=== PATIENT | male | born 1965 | race Caucasian/White ===

== ENCOUNTER 2023-05-31 14:36 | Emergency (ER) | payer BC, SELFPAY ==
[2023-05-31 14:43] VITALS: BP 133/85
[2023-05-31 16:13] VITALS: BMI 32.8
[2023-05-31 16:19] LABS: % Basophils 0.2 % (0-2); % Eosinophils 0.2 % (0-6); % Immature Granulocytes 0.8 % (0-0.5); % Lymphocytes 9.6 % (20.5-51.1); % Monocytes 1.8 % (1.7-9.3); % Neutrophils 87.4 % (42.2-75.2); Absolute Immature Granulocytes 0.1 10^3/uL (0-0.05); Absolute Lymphocytes 1.2 10^3/uL (1.2-3.4); Absolute Monocytes 0.2 10^3/uL (0.1-0.6); Absolute Neutrophils 11.4 10^3/uL (1.4-6.5); Hematocrit 40.7 % (39.0-52.0); Mean Corp Hgb Conc. 34.4 g/dL (33.0-37.0); Mean Corpuscular Hgb 28.7 pg (27.0-31.0); Mean Corpuscular Volume 83.4 fL (80.0-94.0); Mean Platelet Volume 9.5 fL (7.4-10.4); Nucleated Red Blood Cells % 0 % (-); Platelet Count 402 10^3/uL (130-400); Red Blood Cell Count 4.88 10^6/uL (4.70-6.10); Red Cell Dist. Width 13.2 % (11.5-14.5)
[2023-05-31 16:36] LABS: ALT (SGPT) 30 U/L (0-50); AST (SGOT) 38 U/L (17-59); Albumin 5.3 g/dl (3.5-5.0); Alkaline Phosphatase 104 U/L (38-126); Blood Urea Nitrogen 23 mg/dl (9-20); Calcium 9.6 mg/dl (8.4-10.2); Carbon Dioxide 24 mmol/L (22-30); Chloride 102 mmol/L (98-107); Estimated Creatinine Clearance 77 ml/min; Glucose 132 mg/dl (70-99); Lipase 93 U/L (23-300); Potassium 4.6 mmol/L (3.5-5.1); Sodium 136 mmol/L (135-145); Total Bilirubin 0.5 mg/dl (0.2-1.3); Total Protein 8.8 g/dl (6.3-8.2); eGFR > 60.00
--- NOTE | 2023-05-31 17:15 | ED.GENMED ---
History of Present Illness
General
Chief Complaint: Abdominal Symptoms
Time Seen by Provider: 05/31/23 17:15
Travel History
Have you had any contact with someone who has COVID-19?: No
Do you have any symptoms of coronavirus? Fever > 100 degrees, chills, cough, shortness of breath, sore throat, loss of taste or smell, muscle aches, or headache?: No
History of Present Illness
History of Present Illness:
HPI: Patient presents with multiple rounds of vomiting described as about 20 times over the past 24 hours. He has had some constipation with only small amounts of bowel movements recently. He has not had diarrhea. He has had similar episodes in
the past. He feels dehydrated.
EXAM:
GENERAL: Appears somewhat uncomfortable
HEENT: Slightly dry oral mucosa
CARDIOVASCULAR: No murmurs, borderline tachycardic heart rate with regular rhythm, No chest wall tenderness
PULMONARY: No respiratory distress, breath sounds are clear and equal
ABDOMEN: Soft with no peritoneal signs, no tenderness
NEUROLOGIC: Excellent strength all extremities, no coordination deficits
PSYCHIATRIC: Appropriate mental status, normal insight and judgement
EXTREMITIES: Nontender, no edema, moves all extremities equally
SKIN: No rash, no lesions
ED COURSE:
5:30 PM: I initially evaluated patient
NUMBER AND COMPLEXITY OF PROBLEMS ADDRESSED AT THE ENCOUNTER
� Chronic conditions affecting care: Esophageal constriction, thyroid cancer, frequent unexplained bouts of vomiting
� Acute Exacerbation and/or Progression of Chronic Illness: This is a chronic problem for the patient
� Differential Diagnosis includes: Recurrent vomiting, gastroparesis, bowel obstruction, gastroenteritis
AMOUNT AND/OR COMPLEXITY OF DATA TO BE REVIEWED AND ANALYZED
� I performed an independent evaluation of and my interpretation is:
EKG:
CT:
X-rays:
Laboratory Studies: White count 13.0, LFTs and lipase unremarkable, renal function normal with exception of slightly elevated BUN
Other:
� Review of other/old records: The patient was kept in the hospital on 02/10 through 02/11/2023 and at that time there was some concern for possible SBO however was felt later to have gastroenteritis possibly viral versus
bacterial but did briefly have an NG tube that hospitalization
� Clinical information was obtained by an independent historian:
� Prescriptions/Medications Considered but not given:
� Further testing considered but not performed: I offered and considered CT imaging however the patient states he has had several CT imaging studies all of which were relatively unremarkable and does not want to have additional
CT imaging at this time. I informed him that I cannot give the patient any guarantees that he does not have any more serious and he verbalized understanding of this.
RISK OF COMPLICATIONS AND/OR MORBIDITY OR MORTALITY OF PATIENT MANAGEMENT
� Social determinants of health affecting care: Lives at home
� Discussion with other providers:
� Escalation of care including admission/observation vs risk of discharge considered: The patient was given IV fluids, Pepcid, Zofran, and will try IM Bentyl. He declined CT. urinalysis shows no ketones and creatinine is still
within normal range. He was given a couple liters of fluid. On reassessment at 7:20 PM, the patient overall feels improved. He was given 2 L of fluid. He states he does not use marijuana vape regularly but only occasionally. We did talk about
the possible of cannabinoid hyperemesis syndrome. He states he has seen GI doctors in the past and they have done extensive workup.
Past History
Past History
ED Past Medical History: Cancer (Thyroid cancer), Hypothyroidism and Other (Migraine headaches)
ED Past Surgical History: Orthopedic (Left shoulder replacement) and Other (Esophageal dilatation, thyroidectomy)
Patient has exhibited threatening behavior?: No
Social History
Tobacco: Non-smoker
Alcohol: None
Drug: None
Personal: Single
Living: with family
Employment: Not employed
Family History
Family History: Other
Phy Exam
Physical Exam
Physical Exam:
See HPI
Course
Orders/Labs/Results
Orders:
Orders
05/31/23 16:03
IV Insert/Care/Rem.- Treatment PRN
05/31/23 16:09
Complete Blood Count/With Diff Urgent
Comprehensive Metabolic Panel Urgent
Lipase Urgent
05/31/23 17:29
0.9% Sodium Chloride 1000 ml [Nss] 1,000 ml IV BOLUS
Dicyclomine HCl [Bentyl] 20 mg IM NOW STA
Famotidine [Pepcid] 20 mg IV NOW STA
05/31/23 17:31
0.9% Sodium Chloride 1000 ml [Nss] 1,000 ml IV BOLUS
05/31/23 17:33
Ondansetron Injectable [Zofran] 4 mg IV NOW STA
05/31/23 17:42
Urinalysis Reflex To Culture Urgent
Date Specimen was Collected: 05/31/23
Time Specimen was Collected: 16:03
Urine Microscopic Reflex Cult Urgent
Urine Culture Urgent
SETH Source: U
Specimen Description:
Date Specimen was Collected: 05/31/23
Time Specimen was Collected: 16:03
Abnormal Lab Results
05/31/23 05/31/23
16:09 17:42
WBC 13.0 H 10^3/uL
(4.8-10.8)
Plt Count 402 H 10^3/uL
(130-400)
Abs Immat Gran (auto) 0.1 H 10^3/uL
(0-0.05)
Absolute Neuts (auto) 11.4 H 10^3/uL
(1.4-6.5)
Immature Gran % 0.8 H %
(0-0.5)
Neutrophils % 87.4 H %
(42.2-75.2)
Lymphocytes % 9.6 L %
(20.5-51.1)
BUN 23 H mg/dl
(9-20)
Glucose 132 H mg/dl
(70-99)
Total Protein 8.8 H g/dl
(6.3-8.2)
Albumin 5.3 H g/dl
(3.5-5.0)
Urine Bilirubin 1+ A
(Negative)
Leukocyte Esterase Rfl Trace A
(Negative)
Urine Bacteria (Reflex) Moderate A
(Negative)
05/31/23 16:09
05/31/23 16:09
Vital Signs
Initial and Last Documented VS:
Initial Vital Signs
Temp Pulse Resp BP Pulse Ox
98.3 F 107 18 133/85 96
05/31/23 14:43 05/31/23 14:43 05/31/23 14:43 05/31/23 14:43 05/31/23 14:43
Last Documented Vital Signs
Temp Pulse Resp BP Pulse Ox
98.3 F 98 15 130/78 98
05/31/23 14:43 05/31/23 19:22 05/31/23 19:22 05/31/23 19:22 05/31/23 19:22
*Critical Care Note
Total Time (30-74mins, 75-104mins- exclusive of procedures): Not Applicable
ED Attending Note
-
Portions of this chart may have been created with voice recognition software.� Occasional wrong word or��sound alike� substitutions may have occurred due to the inherent limitations of voice recognition software.
Discharge Plan
Departure
Patient Disposition: Home (Routine Discharge)
Date of Disposition: 05/31/23
Time of Disposition: 19:20
Patient with high blood pressure during this ER visit?: Yes
Discharge Problem:
Vomiting
Instructions: Nausea and Vomiting, Adult (DC)
Prescriptions:
No Action
levothyroxine 175 MCG tablet
175 mcg PO DAILY
atorvastatin 10 MG tablet
10 mg PO DAILY
omeprazole 40 mg Capsule,Delayed Release(Dr/Ec)
40 mg PO DAILY
loperamide 2 mg Capsule
2 mg PO Q6HPRN PRN (Reason: DIARRHEA)
sumatriptan succinate 100 mg Tablet
100 mg PO DAILYPRN PRN (Reason: MIGRAINES)
dicyclomine 10 mg Capsule
10 mg PO QIDPRN PRN (Reason: ABDOMINAL PAIN)
amoxicillin-pot clavulanate 875-125 mg tablet
1 tab PO BID Qty: 10 0RF
ondansetron 4 MG tablet,disintegrating
4 mg PO TIDPRN PRN (Reason: nausea/vomiting) Qty: 20 0RF
Referrals:
Paxton Brown MD [Active] - Follow up in 2-3 days
Ken Snow DO [Family Provider] -
Activity Restrictions/Additional Instructions:
I have given you the contact information for the local GI doctors. Your white blood cell count is slightly high at 13 but has been higher in the past. We gave you Zofran along with Pepcid, 2 L of fluid, and a shot of Bentyl. Return here if worse.
Interventions
Interventions:
ED- Fall Risk Assessment Last Done: 05/31/23 16:13
*ED COVID-19 Vaccine History Last Done: 05/31/23 14:43
QZ-Xeomzl-Wbrfkokckr Assessment Last Done: 05/31/23 16:13
[2023-05-31] MEDS: PEPCID 20 MG IV (17:35)
[2023-05-31] MEDS: ZOFRAN 4 MG IV (17:35)
[2023-05-31] MEDS: NSS 1000 IV ×2 (17:35→17:36)
[2023-05-31] MEDS: BENTYL 20 MG IM (17:36)
[2023-05-31 17:59] LABS: Urine Albumin Trace (Neg - Trace); Urine Bilirubin 1+ (Negative); Urine Character Clear (Clear); Urine Color Yellow; Urine Glucose Negative (Negative); Urine Ketone Negative (Negative); Urine Leukocyte Trace (Negative); Urine Nitrite Negative (Negative); Urine Occult Blood Negative (Negative); Urine Urobilinogen Negative (Neg - 1+); Urine pH 6.5 (5.0-9.0)
[2023-05-31 18:04] LABS: Urine Bacteria Moderate (Negative); Urine Mucus Moderate; Urine Red Blood Cell 0-2 /HPF (0-2); Urine White Cell 0-2 /HPF (0-5)
[2023-05-31 19:22] VITALS: BP 130/78
== END 2023-05-31 19:32 | disposition home or self-care (01) ==
LOC: EMR 14:36
PROVIDERS: EMERGENCY PHYSICIAN Emergency Medicine; FAMILY PHYSICIAN Internal Medicine
DX: R11.10 Vomiting, unspecified (principal)
CPT/HCPCS: 99284; 96374; 96375; 96372; 96361; 80053; 81003; 81015; 83690; 85025; 87086

== ENCOUNTER 2023-06-12 18:39 | Emergency (ER) | payer BC, SELFPAY ==
[2023-06-12 18:41] VITALS: BP 142/77
[2023-06-12] MEDS: NSS 1000 IV ×2 (19:16→21:31)
[2023-06-12] MEDS: PEPCID 20 MG IV (19:16)
[2023-06-12] MEDS: ZOFRAN 4 MG IV ×2 (19:16→22:25)
[2023-06-12] MEDS: BENTYL 20 MG IM (19:18)
[2023-06-12 19:24] LABS: % Basophils 0.2 % (0-2); % Eosinophils 0.2 % (0-6); % Immature Granulocytes 0.5 % (0-0.5); % Lymphocytes 8.3 % (20.5-51.1); % Monocytes 0.7 % (1.7-9.3); % Neutrophils 90.1 % (42.2-75.2); Absolute Immature Granulocytes 0.1 10^3/uL (0-0.05); Absolute Lymphocytes 1.4 10^3/uL (1.2-3.4); Absolute Monocytes 0.1 10^3/uL (0.1-0.6); Absolute Neutrophils 14.9 10^3/uL (1.4-6.5); Hematocrit 40.2 % (39.0-52.0); Hemoglobin 13.5 g/dL (13.0-18.0); Mean Corp Hgb Conc. 33.6 g/dL (33.0-37.0); Mean Corpuscular Hgb 28.5 pg (27.0-31.0); Mean Platelet Volume 9.3 fL (7.4-10.4); Nucleated Red Blood Cells % 0 % (-); Platelet Count 316 10^3/uL (130-400); Red Blood Cell Count 4.73 10^6/uL (4.70-6.10); Red Cell Dist. Width 13.3 % (11.5-14.5); White Blood Cell Count 16.6 10^3/uL (4.8-10.8)
[2023-06-12 19:36] LABS: ALT (SGPT) 34 U/L (0-50); AST (SGOT) 33 U/L (17-59); Albumin 5.1 g/dl (3.5-5.0); Alkaline Phosphatase 79 U/L (38-126); Blood Urea Nitrogen 18 mg/dl (9-20); Calcium 9.4 mg/dl (8.4-10.2); Carbon Dioxide 22 mmol/L (22-30); Chloride 103 mmol/L (98-107); Glucose 104 mg/dl (70-99); Lipase 119 U/L (23-300); Potassium 4.4 mmol/L (3.5-5.1); Sodium 136 mmol/L (135-145); Total Bilirubin 0.9 mg/dl (0.2-1.3); Total Protein 8.4 g/dl (6.3-8.2); eGFR > 60.00
--- NOTE | 2023-06-12 20:25 | ED.GENMED ---
History of Present Illness
General
Chief Complaint: Abdominal Symptoms
Source: patient
Exam Limitations: none
Time Seen by Provider: 06/12/23 18:54
Travel History
Have you had any contact with someone who has COVID-19?: No
Do you have any symptoms of coronavirus? Fever > 100 degrees, chills, cough, shortness of breath, sore throat, loss of taste or smell, muscle aches, or headache?: No
History of Present Illness
History of Present Illness:
58-year-old male presents with the onset of nausea vomiting abdominal pain with diarrhea earlier today. He states he has regular episodes of this. He was here 2 weeks ago for the same. He tried Zofran and Bentyl at home without relief. He denies
fever. No known sick contacts. He has been evaluated multiple times here was admitted in January for similar symptoms and has seen GI. He denies to me any alcohol or marijuana use. No blood in the stool or the vomit.
Past History
Past History
ED Past Medical History: Cancer (Thyroid cancer), Hypothyroidism and Other (Migraine headaches)
ED Past Surgical History: Orthopedic (Left shoulder replacement) and Other (Esophageal dilatation, thyroidectomy)
Patient has exhibited threatening behavior?: No
Social History
Tobacco: Non-smoker
Alcohol: None
Drug: None
Personal: Single
Living: with family
Employment: Not employed
Family History
Family History: Other
Phy Exam
Physical Exam
Physical Exam:
General: Slightly ill-appearing male no acute respiratory distress
HEENT: Normocephalic atraumatic
Heart: Regular rate and rhythm no murmurs
Lungs: Clear to auscultation bilaterally no wheezing
Abdomen: Soft mildly diffusely tender no guarding or rebound normal bowel sounds nondistended extremities: No cyanosis
Skin: Warm no rash
Course
Orders/Labs/Results
Orders:
Orders
06/12/23 19:05
0.9% Sodium Chloride 1000 ml [Nss] 1,000 ml IV BOLUS
Dicyclomine HCl [Bentyl] 20 mg IM NOW STA
Famotidine [Pepcid] 20 mg IV NOW STA
Ondansetron Injectable [Zofran] 4 mg IV NOW STA
06/12/23 19:15
Complete Blood Count/With Diff Urgent
Comprehensive Metabolic Panel Urgent
Lipase Urgent
06/12/23 19:54
STOOL [C difficile Antigen & Toxins] Urgent
SETH Source: Feces/Stool
Specimen Description:
Date Specimen was Collected: 06/12/23
Time Specimen was Collected: 19:22
Stool Culture Urgent
SETH Source: Feces/Stool
Specimen Description:
Date Specimen was Collected: 06/12/23
Time Specimen was Collected: 19:22
06/12/23 21:17
0.9% Sodium Chloride 1000 ml [Nss] 1,000 ml IV BOLUS
06/12/23 22:21
Ondansetron Injectable [Zofran] 4 mg IV NOW STA
Abnormal Lab Results
06/12/23
19:15
WBC 16.6 H 10^3/uL
(4.8-10.8)
Abs Immat Gran (auto) 0.1 H 10^3/uL
(0-0.05)
Absolute Neuts (auto) 14.9 H 10^3/uL
(1.4-6.5)
Neutrophils % 90.1 H %
(42.2-75.2)
Lymphocytes % 8.3 L %
(20.5-51.1)
Monocytes % 0.7 L %
(1.7-9.3)
Glucose 104 H mg/dl
(70-99)
Total Protein 8.4 H g/dl
(6.3-8.2)
Albumin 5.1 H g/dl
(3.5-5.0)
06/12/23 19:15
06/12/23 19:15
Vital Signs
Initial and Last Documented VS:
Initial Vital Signs
Temp Pulse Resp BP Pulse Ox
98.0 F 115 20 142/77 98
06/12/23 18:41 06/12/23 18:41 06/12/23 18:41 06/12/23 18:41 06/12/23 18:41
Last Documented Vital Signs
Temp Pulse Resp BP Pulse Ox
98.0 F 102 18 112/65 95
06/12/23 18:41 06/12/23 21:32 06/12/23 21:32 06/12/23 21:32 06/12/23 21:32
MDM/Problems Addressed
Differential Diagnosis Includes:
Recurrent abdominal pain nausea vomiting and diarrhea. He has been worked up for this in the past. Currently too symptomatic to drink. Will try hydrating Bentyl give Zofran as well. No localizing tenderness on exam at this point no indication
for imaging of his abdomen
*Critical Care Note
Total Time (30-74mins, 75-104mins- exclusive of procedures): Not Applicable
Update Note
Update Note:
Patient reevaluated multiple times. Feeling slightly improved after fluids and medication. Now drinking herbert sadiq. Stool cultures are pending. Patient states he is willing to go home. He plans on following up with GI for his recurrent
abdominal pain and vomiting and diarrhea. Things is reasonable. White blood cell count is 16 however he is elevated regularly.
ED Attending Note
-
Portions of this chart may have been created with voice recognition software.� Occasional wrong word or��sound alike� substitutions may have occurred due to the inherent limitations of voice recognition software.
Discharge Plan
Departure
Patient Disposition: Home (Routine Discharge)
Date of Disposition: 06/12/23
Time of Disposition: 22:24
Patient with high blood pressure during this ER visit?: No
Discharge Problem:
Gastroenteritis
Instructions: Nausea and Vomiting, Adult (DC)
Prescriptions:
No Action
levothyroxine 175 MCG tablet
175 mcg PO DAILY
atorvastatin 10 MG tablet
10 mg PO DAILY
omeprazole 40 mg Capsule,Delayed Release(Dr/Ec)
40 mg PO DAILY
loperamide 2 mg Capsule
2 mg PO Q6HPRN PRN (Reason: DIARRHEA)
sumatriptan succinate 100 mg Tablet
100 mg PO DAILYPRN PRN (Reason: MIGRAINES)
dicyclomine 10 mg Capsule
10 mg PO QIDPRN PRN (Reason: ABDOMINAL PAIN)
amoxicillin-pot clavulanate 875-125 mg tablet
1 tab PO BID Qty: 10 0RF
ondansetron 4 MG tablet,disintegrating
4 mg PO TIDPRN PRN (Reason: nausea/vomiting) Qty: 20 0RF
Referrals:
Ken Snow, DO [Family Provider] -
Activity Restrictions/Additional Instructions:
Drink plenty clear liquids. Continue with Zofran. Please follow-up with GI for further evaluation
Interventions
Interventions:
*Risk Screen - Suicide Last Done: 06/12/23 18:41
*General Assessment Last Done: 06/12/23 18:41
DV-Zxycta-Levqqmtkfu Assessment Last Done: 06/12/23 19:35
[2023-06-12 21:32] VITALS: BP 112/65
[2023-06-12 22:26] VITALS: BP 103/75
== END 2023-06-12 22:32 | disposition home or self-care (01) ==
LOC: EMR 18:39
PROVIDERS: Physician Assistant; EMERGENCY PHYSICIAN Emergency Medicine; FAMILY PHYSICIAN Internal Medicine
DX: K52.9 Noninfective gastroenteritis and colitis, unspecified (principal)
CPT/HCPCS: 99284; 96374; 96375; 96361 ×2; 96372; 96376; 80053; 83690; 85025; 87045; 87046; 87077; 87324; 87427; 87449

== ENCOUNTER 2023-07-21 09:33 | Emergency (ER) | payer BC, SELFPAY ==
[2023-07-21 09:35] VITALS: BP 144/92
[2023-07-21 10:04] VITALS: BMI 35.5
[2023-07-21 10:12] VITALS: BP 142/82
--- NOTE | 2023-07-21 10:13 | ED.GENMED ---
History of Present Illness
General
Chief Complaint: Abdominal Symptoms
Source: patient
Exam Limitations: none
Time Seen by Provider: 07/21/23 10:01
Nursing documentation reviewed up to this point in time: agreed with
Travel History
Have you had any contact with someone who has COVID-19?: No
Do you have any symptoms of coronavirus? Fever > 100 degrees, chills, cough, shortness of breath, sore throat, loss of taste or smell, muscle aches, or headache?: No
History of Present Illness
History of Present Illness:
Patient is a 58-year-old male with chronic nausea and vomiting for 10 years worse over the past 2 years. He has been here several times in the ER and has been seen by GI has had colonoscopy endoscopy with no diagnosis. He is scheduled for
exploratory surgery in [address] Stinson. He does report that Dr. Stinson is planning on also doing appendectomy as patient has a history in his family of same symptoms that were attributed to their appendix and once appendix was removed
symptoms improved.
He started with vomiting at 7 AM this morning he has taken Zofran but is still vomited it which is why he presented to the ER.
Past History
Past History
ED Past Medical History: Cancer (Thyroid cancer), Hypothyroidism and Other (Migraine headaches)
ED Past Surgical History: Orthopedic (Left shoulder replacement) and Other (Esophageal dilatation, thyroidectomy)
Patient has exhibited threatening behavior?: No
Social History
Tobacco: Non-smoker
Alcohol: None
Drug: None
Personal: Single
Living: with family
Employment: Not employed
Family History
Family History: Other
Review of Systems
Review of Systems
Allergies reviewed?: Yes
All Other Systems: ROS reviewed and negative except as documented in HPI and ROS
Constitutional: Reports no symptoms; Denies fever, fatigue or chills
Respiratory: Reports no symptoms
Cardiac: Reports no symptoms
ABD/GI: Reports nausea and vomiting
Musculoskeletal: Reports no symptoms
Skin: Reports no symptoms
Neurological: Reports no symptoms
Endocrine: Reports no symptoms
Psychiatric: Reports no symptoms
Phy Exam
General Physical Exam
General Presentation: no apparent distress
General age: appears stated age
General Skin: warm and dry
General Habitus: normal
General Mental: alert
General Hydration: appears well hydrated
Gastrointestinal Exam
Gastrointestinal Exam: non tender and soft
Neurological Exam
Neurological Exam: alert and oriented x3
Musculoskeletal Exam
Musculoskeletal Exam: full ROM
Skin Exam
Skin Exam: normal color and warm/dry
Psychiatric Exam
Psychiatric Exam: normal mood/affect
Course
Orders/Labs/Results
Orders:
Orders
07/21/23 10:14
CMP [Comprehensive Metabolic Panel] Urgent
Complete Blood Count/With Diff Urgent
Lipase Urgent
Comment: abdominal pain.
07/21/23 10:28
Famotidine [Pepcid] 20 mg IV NOW STA
Ondansetron Injectable [Zofran] 4 mg IV NOW STA
07/21/23 10:29
0.9% Sodium Chloride 1000 ml [Nss] 1,000 ml IV BOLUS
07/21/23 12:00
0.9% Sodium Chloride 1000 ml [Nss] 1,000 ml IV BOLUS
Abnormal Lab Results
07/21/23
10:14
WBC 17.6 H 10^3/uL
(4.8-10.8)
RBC 4.28 L 10^6/uL
(4.70-6.10)
Hgb 12.4 L g/dL
(13.0-18.0)
Hct 36.0 L %
(39.0-52.0)
Abs Immat Gran (auto) 0.1 H 10^3/uL
(0-0.05)
Absolute Neuts (auto) 14.9 H 10^3/uL
(1.4-6.5)
Absolute Monos (auto) 0.8 H 10^3/uL
(0.1-0.6)
Immature Gran % 0.7 H %
(0-0.5)
Neutrophils % 84.9 H %
(42.2-75.2)
Lymphocytes % 9.0 L %
(20.5-51.1)
BUN 23 H mg/dl
(9-20)
Glucose 106 H mg/dl
(70-99)
07/21/23 10:14
07/21/23 10:14
Vital Signs
Initial and Last Documented VS:
Initial Vital Signs
Temp Pulse Resp BP Pulse Ox
98.8 F 104 16 144/92 96
07/21/23 09:35 07/21/23 09:35 07/21/23 09:35 07/21/23 09:35 07/21/23 09:35
Last Documented Vital Signs
Temp Pulse Resp BP Pulse Ox
98.8 F 104 16 132/74 98
07/21/23 09:35 07/21/23 09:35 07/21/23 09:35 07/21/23 12:00 07/21/23 13:45
MDM/Problems Addressed
MDM/Problems Addressed:
Patient has documented has chronic nausea vomiting for the past 2 years evaluated by family doctor and GI with no definitive diagnosis. Patient reported that his family has a history of similar symptoms of nausea and vomiting with elevated white
counts and once they had their appendix removed and their symptoms resolved. He was seen by Dr. Stinson of surgery and has an upcoming exploratory surgery coming up and they are planning on removing his appendix as well. Patient complains of
nausea and vomiting which is not relieved with the Zofran. Patient was hydrated here given Zofran feeling better patient has a chronically elevated white count and it is elevated here today however he is nontoxic this is baseline he wants to go
home. He has Zofran at home will DC with outpatient Surgery.
*Critical Care Note
Total Time (30-74mins, 75-104mins- exclusive of procedures): Not Applicable
ED Attending Note
-
Portions of this chart may have been created with voice recognition software.� Occasional wrong word or��sound alike� substitutions may have occurred due to the inherent limitations of voice recognition software.
Discharge Plan
Departure
Patient Disposition: Home (Routine Discharge)
Date of Disposition: 07/21/23
Time of Disposition: 14:07
Patient with high blood pressure during this ER visit?: Yes
Condition: Fair
Covid-19: Not Applicable
Discharge Problem:
Nausea & vomiting
Instructions: Nausea and Vomiting, Adult (DC)
Prescriptions:
No Action
levothyroxine 175 mcg Tablet
175 mcg PO DAILY
atorvastatin 20 mg Tablet
20 mg PO DAILY
omeprazole 40 mg Capsule,Delayed Release(Dr/Ec)
40 mg PO DAILY
naproxen sodium [Aleve] 220 mg Tablet
440 mg PO BID PRN (Reason: mild pain)
ondansetron 4 mg Tablet,Disintegrating
4 mg PO Q8H PRN (Reason: nausea/vomiting)
Referrals:
NONE,* [Active] -
Talon Stinson MD [Active] -
Activity Restrictions/Additional Instructions:
Follow-up with Dr. Stinson as scheduled. you may continue to use your Zofran as previously recommended and return if any worsening of symptoms.
Interventions
Interventions:
*Risk Screen - Suicide Last Done: 07/21/23 09:36
*General Assessment Last Done: 07/21/23 10:04
*Neglect/Abuse Screening Last Done: 07/21/23 09:36
ED- Fall Risk Assessment Last Done: 07/21/23 10:04
*ED COVID-19 Vaccine History Last Done: 07/21/23 10:04
*Nursing Disposition Last Done: 07/21/23 14:13
VM-Nwsciw-Pyxpcydrdn Assessment Last Done: 07/21/23 10:04
Discharge Date and Time
Discharge Date/Time: 07/21/23 14:13
Print Language: ZAMBIAN
[2023-07-21 10:26] LABS: % Basophils 0.3 % (0-2); % Eosinophils 0.6 % (0-6); % Immature Granulocytes 0.7 % (0-0.5); % Monocytes 4.5 % (1.7-9.3); % Neutrophils 84.9 % (42.2-75.2); Absolute Basophils 0.1 10^3/uL (0-0.2); Absolute Eosinophils 0.1 10^3/uL (0-0.7); Absolute Immature Granulocytes 0.1 10^3/uL (0-0.05); Absolute Lymphocytes 1.6 10^3/uL (1.2-3.4); Absolute Monocytes 0.8 10^3/uL (0.1-0.6); Absolute Neutrophils 14.9 10^3/uL (1.4-6.5); Hemoglobin 12.4 g/dL (13.0-18.0); Mean Corp Hgb Conc. 34.4 g/dL (33.0-37.0); Mean Corpuscular Volume 84.1 fL (80.0-94.0); Mean Platelet Volume 9.6 fL (7.4-10.4); Nucleated Red Blood Cells % 0 % (-); Platelet Count 317 10^3/uL (130-400); Red Blood Cell Count 4.28 10^6/uL (4.70-6.10); Red Cell Dist. Width 13.5 % (11.5-14.5); White Blood Cell Count 17.6 10^3/uL (4.8-10.8)
[2023-07-21] MEDS: NSS 1000 IV ×2 (10:34→12:01)
[2023-07-21] MEDS: PEPCID 20 MG IV (10:34)
[2023-07-21] MEDS: ZOFRAN 4 MG IV (10:34)
[2023-07-21 11:10] VITALS: BP 123/61
[2023-07-21 11:38] LABS: Blood Urea Nitrogen 23 mg/dl (9-20); Estimated Creatinine Clearance 120 ml/min; Glucose 106 mg/dl (70-99); eGFR > 60.00
[2023-07-21 11:39] LABS: ALT (SGPT) 30 U/L (0-50); AST (SGOT) 32 U/L (17-59); Albumin 4.7 g/dl (3.5-5.0); Alkaline Phosphatase 84 U/L (38-126); Calcium 9.3 mg/dl (8.4-10.2); Carbon Dioxide 24 mmol/L (22-30); Chloride 106 mmol/L (98-107); Lipase 95 U/L (23-300); Potassium 4.1 mmol/L (3.5-5.1); Sodium 137 mmol/L (135-145); Total Bilirubin 0.6 mg/dl (0.2-1.3); Total Protein 7.9 g/dl (6.3-8.2)
[2023-07-21 12:00] VITALS: BP 132/74
== END 2023-07-21 14:13 | disposition home or self-care (01) ==
LOC: EMR 09:33
PROVIDERS: Nurse Practitioner; EMERGENCY PHYSICIAN Emergency Medicine; FAMILY PHYSICIAN Internal Medicine
DX: R11.2 Nausea with vomiting, unspecified (principal); R03.0 Elevated blood-pressure reading, without diagnosis of hypertension
CPT/HCPCS: 99284; 96374; 96375; 96361; 80053; 83690; 85025

== ENCOUNTER 2023-08-13 06:15 | Day surgery (SDC) | payer BC, SELFPAY ==
[2023-07-28 13:28] VITALS: BMI 33.7
--- NOTE | 2023-08-06 12:01 | PTCARENOTE ---
WBC's 17.6 collected on 07/21/23; Daniela at 's office was notified.
[2023-08-13] VITALS (13 sets, daily range): BP systolic 103–144; BP diastolic 69–93; BMI 33.7
[2023-08-13] MEDS: TYLENOL 1000 MG PO (08:50)
[2023-08-13] MEDS: NORMOSOL-R 1000 IV (08:51)
--- NOTE | 2023-08-13 09:04 | HP.FOC2 ---
Focused History & Physical
Chief Complaint
HPI:
Chief Complaint: abd pain
HPI / Indication for Planned Procedure: 58 y/o male with a h/o chronic intermittent abdominal pain, N/V/D uncertain cause. Has had extensive GI evaluations essentially unremarkable for infectious or inflammatory causes. Fam hx notable for similar
symptoms and have been found to have chronic appendicitis. See office visit consult for full details regarding discussions, he presents today for dx lap, appendectomy and also removal of lipoma on his abd.
Relevant Past Medical History: Other (thyroid ca, high cholesterol)
Relevant Social History: Negative
Relevant Family History: Positive for (multiple members with chronic appendicitis)
Relevant Past Surgical History: Positive for (thyroidectomy, left shoulder replacement, right bicepts)
Review of Systems
Review of Pertinent Systems: All Systems Negative
Medication
See Medication form for detailed medications: Yes
Medication List (including Herbals & OTC):
atorvastatin 20 mg tablet 20 mg PO DAILY 07/21/23
levothyroxine 175 mcg tablet 175 mcg PO DAILY 07/21/23
omeprazole 40 mg capsule,delayed release 40 mg PO DAILY 07/21/23
lorazepam 1 mg tablet 1 mg PO PRN PRN anxiety 08/10/23
Medications Reviewed: Yes
Allergies and Reactions
Patient has Allergies: No
Noted Allergies and Reactions:
Allergy/AdvReac Type Severity Reaction Status Date / Time
No Known Allergies Allergy Verified 08/13/23 08:26
Pertinent Physical Exam
All Other Systems: Negative
Head/Neck: Normal
Lungs: Normal
Heart: Normal
Abdomen: Other (epigastric lipoma)
Extremities: Normal
Neurological: Normal
Diagnosis / Assessment
58 y/o male presenting for dx lap, appendectomy and removal of abd subcutaneous lipoma
Plan / Procedure
dx lap, appendectomy and removal of abd subcutaneous lipoma
Anesthesia/Sedation to be done by Anesthesia Provider: Yes
--- NOTE | 2023-08-13 09:23 | W.SUR.PREOP ---
Pre-Operative Surgical Note
-
I have examined this patient prior to the performance of the scheduled procedure.
The patient's condition is unchanged from the time of the current History and
Physical and the patient is able to undergo the scheduled procedure.
[2023-08-13] MEDS: TRANSDERM-SCOP 1 PATCH TRANSDERM (09:38)
--- NOTE | 2023-08-13 11:13 | W.IMMPOSTOP ---
Addendum entered and electronically signed by Talon Stinson MD 08/13/23 11:23:
#[id number]
Original Note:
Surgical Immed Post Op Note
-
Primary Surgeon: Milad
Assisting Surgeon: Stormy VILLANUEVA
Pre-op Diagnosis: Intermittent abdominal pain N/V/D; lipoma subcutaneous abdominal
Post-op Diagnosis: same
Procedure Performed: Dx Laparoscopy, LINDA, Appendecomy; excision subcutaneous lipoma 2cm
Anesthesia Type: GETA + 0.25% Marcaine
Specimen / Cultures: appendix, lipoma
Estimated Blood Loss: 6mL
Complications: none immediate
Operative Findings: 2 cm well encapsulated lipoma; some TI peritoneal adhesions cause some angulation of distal ilium - lysed; appendectomy completed.
[2023-08-13] MEDS: ZOFRAN 4 MG IV (12:02)
[2023-08-13] MEDS: DILAUDID 0.25 MG IV (12:09)
[2023-08-13] MEDS: COMPAZINE 5 MG IV (12:12)
== END 2023-08-13 15:15 | disposition home or self-care (01) ==
LOC: SDS 06:15
PROVIDERS: ATTENDING PHYSICIAN Surgery; FAMILY PHYSICIAN Internal Medicine
DX: D17.1 Benign lipomatous neoplasm of skin and subcutaneous tissue of trunk (principal); K66.0 Peritoneal adhesions (postprocedural) (postinfection); R10.9 Unspecified abdominal pain
CPT/HCPCS: 44970; 22900; 88304; 36415; 93005; J1335

== ENCOUNTER 2024-06-06 11:56 | Emergency (ER) | payer BC, SELFPAY ==
[2024-06-06 11:59] VITALS: BP 136/88
--- NOTE | 2024-06-06 13:04 | ED.GENMED ---
History of Present Illness
<DO Estefany Cruz Last Filed: 06/06/24 14:28>
General
Chief Complaint: Abdominal Symptoms
Time Seen by Provider: 06/06/24 12:06
History of Present Illness
History of Present Illness:
59-year-old male with history of intractable vomiting presenting for nausea and vomiting. Patient reports symptoms started this morning. Has had similar symptoms in the past of unclear etiology. Denies known triggers. Denies alcohol or drug
abuse. Last episode of vomiting was 20 minutes ago. Denies any associate abdominal pain. Denies diarrhea. Denies fever or recent illness or additional acute medical complaints
Past History
<DO Estefany Cruz Last Filed: 06/06/24 14:28>
Past History
ED Past Medical History: Cancer (Thyroid cancer), Hypothyroidism and Other (Migraine headaches)
ED Past Surgical History: Orthopedic (Left shoulder replacement) and Other (Esophageal dilatation, thyroidectomy)
Patient has exhibited threatening behavior?: No
Social History
Tobacco: Non-smoker
Alcohol: None
Drug: None
Personal: Single
Living: with family
Employment: Not employed
Family History
Family History: Other
Phy Exam
<DO Estefany Cruz Last Filed: 06/06/24 14:28>
Physical Exam
Physical Exam:
General: Well-appearing, no clinical signs of dehydration, nontoxic and in no acute distress
HEENT: protecting airway
Neck: appears supple
CV: Normal heart rate, regular rhythm
Resp: No accessory muscle use, no increased work of breathing, lungs clear to auscultation bilaterally
Abd: Soft and non-distended, no tenderness to palpation
Extremities: No deformities, no swelling
Neuro: alert, no focal neurologic deficit
: deferred
Rectal: deferred
Psych: Normal affect
Skin: Intact
Course
<Michelle Davala, DO - Last Filed: 06/06/24 14:28>
Orders/Labs/Results
Orders:
Orders
06/06/24 12:51
0.9% Sodium Chloride 1000 ml [Nss] 1,000 ml IV BOLUS
Ondansetron Injectable [Zofran] 4 mg IV NOW STA
06/06/24 13:09
Complete Blood Count/With Diff Urgent
Comprehensive Metabolic Panel Urgent
Lipase Urgent
06/06/24 14:19
0.9% Sodium Chloride 1000 ml [Nss] 1,000 ml IV BOLUS
06/06/24 15:10
Ondansetron Injectable [Zofran] 4 mg IV NOW STA
06/06/24 18:09
Diphenhydramine [Benadryl] 25 mg IV NOW STA
Metoclopramide [Reglan] 10 mg IV NOW STA
06/06/24 18:10
Electrocardiogram (*1) Urgent
Reason for Study: QTc Monitoring
EKG- Treatment ONCE
06/06/24 18:15
0.9% Sodium Chloride 1000 ml [Nss] 1,000 ml IV 125 mls/hr
Abnormal Lab Results
06/06/24
13:09
WBC 19.5 H 10^3/uL
(4.8-10.8)
Abs Immat Gran (auto) 0.1 H 10^3/uL
(0-0.05)
Absolute Neuts (auto) 16.8 H 10^3/uL
(1.4-6.5)
Absolute Monos (auto) 1.1 H 10^3/uL
(0.1-0.6)
Immature Gran % 0.6 H %
(0-0.5)
Neutrophils % 86.3 H %
(42.2-75.2)
Lymphocytes % 6.9 L %
(20.5-51.1)
BUN 22 H mg/dl
(9-20)
Glucose 111 H mg/dl
(70-99)
06/06/24 13:09
06/06/24 13:09
Vital Signs
Initial and Last Documented VS:
Initial Vital Signs
Temp Pulse Resp BP Pulse Ox
36.3 C 113 20 136/88 100
06/06/24 11:59 06/06/24 11:59 06/06/24 11:59 06/06/24 11:59 06/06/24 11:59
Last Documented Vital Signs
Temp Pulse Resp BP Pulse Ox
36.3 C 93 20 133/75 97
06/06/24 11:59 06/06/24 18:56 06/06/24 18:56 06/06/24 18:56 06/06/24 18:56
<David Vazquez MD - Last Filed: 06/06/24 19:29>
Orders/Labs/Results
Orders:
Orders
06/06/24 12:51
0.9% Sodium Chloride 1000 ml [Nss] 1,000 ml IV BOLUS
Ondansetron Injectable [Zofran] 4 mg IV NOW STA
06/06/24 13:09
Complete Blood Count/With Diff Urgent
Comprehensive Metabolic Panel Urgent
Lipase Urgent
06/06/24 14:19
0.9% Sodium Chloride 1000 ml [Nss] 1,000 ml IV BOLUS
06/06/24 15:10
Ondansetron Injectable [Zofran] 4 mg IV NOW STA
06/06/24 18:09
Diphenhydramine [Benadryl] 25 mg IV NOW STA
Metoclopramide [Reglan] 10 mg IV NOW STA
06/06/24 18:10
Electrocardiogram (*1) Urgent
Reason for Study: QTc Monitoring
EKG- Treatment ONCE
06/06/24 18:15
0.9% Sodium Chloride 1000 ml [Nss] 1,000 ml IV 125 mls/hr
Abnormal Lab Results
06/06/24
13:09
WBC 19.5 H 10^3/uL
(4.8-10.8)
Abs Immat Gran (auto) 0.1 H 10^3/uL
(0-0.05)
Absolute Neuts (auto) 16.8 H 10^3/uL
(1.4-6.5)
Absolute Monos (auto) 1.1 H 10^3/uL
(0.1-0.6)
Immature Gran % 0.6 H %
(0-0.5)
Neutrophils % 86.3 H %
(42.2-75.2)
Lymphocytes % 6.9 L %
(20.5-51.1)
BUN 22 H mg/dl
(9-20)
Glucose 111 H mg/dl
(70-99)
06/06/24 13:09
06/06/24 13:09
Vital Signs
Initial and Last Documented VS:
Initial Vital Signs
Temp Pulse Resp BP Pulse Ox
36.3 C 113 20 136/88 100
06/06/24 11:59 06/06/24 11:59 06/06/24 11:59 06/06/24 11:59 06/06/24 11:59
Last Documented Vital Signs
Temp Pulse Resp BP Pulse Ox
36.3 C 93 20 133/75 97
06/06/24 11:59 06/06/24 18:56 06/06/24 18:56 06/06/24 18:56 06/06/24 18:56
<Michelle Gonzales, DO - Last Filed: 06/06/24 14:28>
MDM/Problems Addressed
MDM/Problems Addressed:
59-year-old male with history of intractable vomiting presenting for nausea and vomiting. Vital signs are significant for mild tachycardia.
On exam patient is in no acute distress, no active emesis. Patient with previously negative workups. He is presently nontoxic, no tenderness to the abdomen without concern for serious intra-abdominal process or infection. Suspect possible
gastritis. Patient notes in the past has had improvement with IV fluids and Zofran. Will screen with laboratory analysis and treat with hydration and antiemetics
Labs do show leukocytosis, however suspected to be reactive. Patient reporting improvement after first bag of fluids and antiemetics. He is requesting another liter of fluids. Will administer. Ultimate plan for discharge with outpatient
follow-up and supportive therapy
<Michelle Gonzales DO - Last Filed: 06/06/24 14:28>
*Critical Care Note
Total Time (30-74mins, 75-104mins- exclusive of procedures): Not Applicable
<David Vazquez MD - Last Filed: 06/06/24 19:29>
Update Note
Update Note:
UPDATE (David Vazquez MD)
I have seen and evaluated the patient after signout and reviewed all labs and imaging.
Focused HPI: 59-year-old male with history as documented uses here to the emergency room for nausea and vomiting today. He says he has a long history of GI issues nausea and vomiting of unclear etiology. Says symptoms returned this morning and
have been constant all day. He does note that he recently started Wegovy and took a dose this morning. He does not have any abdominal pain. No fevers or chills. No other complaints.
Physical exam: Awake alert not in distress. Slightly dry mucous membranes. Vital signs as noted--mild tachycardia in triage resolved by my assessment. His abdomen is soft nondistended nontender to deep palpation.
Medical Decision Makin-year-old male with chronic nausea and vomiting presents for evaluation of nausea and vomiting today; he says typically improved with Zofran and fluids. He has notably been on Wegovy recently. He had labs sent including
a CBC and a CMP�she had a leukocytosis likely demargination but no other acute abnormalities. His lipase was normal. He had 2 doses of Zofran and 2 L of fluid but he says he still has significant nausea. Will trial Reglan. Will continue fluids.
EKG for QTc monitoring. Reassess after the above.
Patient feeling much better after additional treatment as above. Requesting discharge�will discharge in keeping with his wishes. Follow-up with PCP. All questions answered.
ED Attending Note
<Michelle Gonzales, DO - Last Filed: 06/06/24 14:28>
-
Portions of this chart may have been created with voice recognition software.� Occasional wrong word or��sound alike� substitutions may have occurred due to the inherent limitations of voice recognition software.
Discharge Plan
Departure
Patient Disposition: Home (Routine Discharge)
Date of Disposition: 06/06/24
Time of Disposition: 19:29
Patient with high blood pressure during this ER visit?: No
Condition: Good
Discharge Problem:
Nausea and vomiting
Instructions: Stuart Diet, Nausea and Vomiting, Adult (DC)
Prescriptions:
New
ondansetron 4 mg Tablet,Disintegrating
4 mg PO TIDPRN PRN (Reason: nausea/vomiting) Qty: 6 0RF
No Action
lorazepam 1 mg Tablet
1 mg PO PRN PRN (Reason: anxiety)
ibuprofen 200 mg tablet
400 - 600 mg PO Q6HPRN PRN (Reason: moderate pain) Qty: 1 0RF
acetaminophen [Tylenol Extra Strength] 500 mg tablet
1,000 mg PO Q6HPRN PRN (Reason: mild pain) Qty: 1 0RF
polyethylene glycol 3350 [Miralax] 17 gram/dose powder
4 g PO DAILY PRN (Reason: Constipation) Qty: 119 0RF
Rx Instructions:
start a laxative such as MIRALAX on day 2 after surgery if no bowel movement yet as long as no nausea/vomiting and passing gas
oxycodone 5 mg tablet
5 mg PO Q4HPRN PRN (Reason: breakthrough/severe pain) Qty: 7 0RF
levothyroxine 175 mcg Tablet
175 mcg PO DAILY
atorvastatin 20 mg Tablet
20 mg PO DAILY
omeprazole 40 mg Capsule,Delayed Release(Dr/Ec)
40 mg PO DAILY
Referrals:
Ken Snow, DO [Family Provider] -
Activity Restrictions/Additional Instructions:
You were seen in the emergency department for nausea and vomiting
You were found to have reassuring blood work and vital signs. You were treated with Zofran and IV fluids with subsequent improvement.
Please follow-up closely with your primary care physician.
Return to the emergency department for any worsening of your symptoms, or any development of chest pain, difficulty breathing, abdominal pain with persistent vomiting and inability to tolerate food or liquid by mouth (concern for dehydration),
weakness, headache or confusion, fever greater than 100.4, or any additional symptoms that are concerning to you.
Thank you for choosing [facility].
Interventions
Interventions:
*Risk Screen - Suicide Last Done: 06/06/24 11:59
*General Assessment Last Done: 06/06/24 11:59
*Neglect/Abuse Screening Last Done: 06/06/24 11:59
*ED- Fall Risk Assessment Last Done: 06/06/24 13:22
*ED COVID-19 Vaccine History Last Done: 06/06/24 13:22
EQ-Obxlue-Eiaamggsvv Assessment Last Done: 06/06/24 13:21
Discharge Date and Time
Print Language: LAO
[2024-06-06] MEDS: ZOFRAN 4 MG IV ×2 (13:09→15:35)
[2024-06-06] MEDS: NSS 1000 IV ×3 (13:10→18:56)
[2024-06-06 13:20] LABS: % Basophils 0.2 % (0-2); % Eosinophils 0.5 % (0-6); % Immature Granulocytes 0.6 % (0-0.5); % Lymphocytes 6.9 % (20.5-51.1); % Monocytes 5.5 % (1.7-9.3); % Neutrophils 86.3 % (42.2-75.2); Absolute Eosinophils 0.1 10^3/uL (0-0.7); Absolute Immature Granulocytes 0.1 10^3/uL (0-0.05); Absolute Lymphocytes 1.3 10^3/uL (1.2-3.4); Absolute Monocytes 1.1 10^3/uL (0.1-0.6); Absolute Neutrophils 16.8 10^3/uL (1.4-6.5); Hemoglobin 13.7 g/dL (13.0-18.0); Mean Corp Hgb Conc. 35.1 g/dL (33.0-37.0); Mean Corpuscular Hgb 28.5 pg (27.0-31.0); Mean Corpuscular Volume 81.1 fL (80.0-94.0); Mean Platelet Volume 9.1 fL (7.4-10.4); Nucleated Red Blood Cells % 0 % (-); Platelet Count 327 10^3/uL (130-400); Red Blood Cell Count 4.81 10^6/uL (4.70-6.10); Red Cell Dist. Width 13.1 % (11.5-14.5); White Blood Cell Count 19.5 10^3/uL (4.8-10.8)
[2024-06-06 13:40] LABS: ALT (SGPT) 43 U/L (0-50); AST (SGOT) 41 U/L (17-59); Albumin 4.6 g/dl (3.5-5.0); Alkaline Phosphatase 103 U/L (38-126); Blood Urea Nitrogen 22 mg/dl (9-20); Calcium 9.7 mg/dl (8.4-10.2); Carbon Dioxide 24 mmol/L (22-30); Chloride 103 mmol/L (98-107); Glucose 111 mg/dl (70-99); Lipase 123 U/L (23-300); Potassium 4.7 mmol/L (3.5-5.1); Sodium 137 mmol/L (135-145); Total Bilirubin 0.6 mg/dl (0.2-1.3); Total Protein 7.8 g/dl (6.3-8.2); eGFR > 60.00
[2024-06-06] MEDS: REGLAN 10 MG IV (18:12)
[2024-06-06] MEDS: BENADRYL 25 MG IV (18:13)
[2024-06-06 18:56] VITALS: BP 133/75
== END 2024-06-06 20:10 | disposition home or self-care (01) ==
LOC: EMR 11:56
PROVIDERS: EMERGENCY PHYSICIAN Student in an Organized Health Care Education/Training Program; FAMILY PHYSICIAN Internal Medicine
DX: R11.2 Nausea with vomiting, unspecified (principal); R00.0 Tachycardia, unspecified; E89.0 Postprocedural hypothyroidism; Z85.850 Personal history of malignant neoplasm of thyroid
CPT/HCPCS: 96374; 96375; 96376; 96361; 99284; 80053; 83690; 85025; 93005